=== PATIENT | male | born 1970 | race Caucasian/White ===

== ENCOUNTER 2018-09-11 07:30 | Outpatient (RCR) | payer MEDICAID, SELFPAY | END 2018-09-11 11:30 | disposition home or self-care (01) | LOC: PT 07:30 | PROVIDERS: Family Provider Internal Medicine Adolescent Medicine; PCP Internal Medicine Adolescent Medicine; Visit Provider Neurological Surgery | DX: M51.26 Other intervertebral disc displacement, lumbar region (principal); M54.5 Low back pain; G89.29 Other chronic pain; Z98.890 Other specified postprocedural states | CPT/HCPCS: 97010; 97014; 97110; 97163; G0283 ==

== ENCOUNTER → 2020-07-16 08:31 | Outpatient (CLI) | payer MEDICAID, SELFPAY ==
[2020-07-16 15:48] LABS: Coronavirus 19 IgG Antibody Positive (Negative); Coronavirus 19 IgM Antibody Positive (Negative)
== END ==
PROVIDERS: Visit Provider Internal Medicine Gastroenterology
DX: Z01.84 Encounter for antibody response examination (principal); U07.1 COVID-19; Z12.11 Encounter for screening for malignant neoplasm of colon
CPT/HCPCS: 36415; 86328

== ENCOUNTER → 2020-07-17 09:23 | Outpatient (CLI) | payer MEDICAID, SELFPAY | PROVIDERS: PCP Nurse Practitioner Family; Visit Provider Internal Medicine Gastroenterology | DX: Z01.89 Encounter for other specified special examinations (principal); Z12.11 Encounter for screening for malignant neoplasm of colon | CPT/HCPCS: U0003 ==

== ENCOUNTER 2020-07-18 08:46 | Day surgery (SDC) | payer MEDICAID, SELFPAY ==
[2020-07-13 09:44] VITALS: BMI 31.8
[2020-07-18] VITALS (7 sets, daily range): BP systolic 109–145; BP diastolic 68–99; PULSE 50–68; RESP 18; TEMP 36.2–36.7; O2SAT 97–100
--- NOTE | 2020-07-18 10:08 | P.PN_ITS ---
[facility] Anesthesia Checklist - Patient Identification Patient Identification: Arm Band - Structural Data Admitted From: Home Planned Operative Procedure/s: colonoscopy Consent for Planned Operative Procedure(s) Verified: Yes Verified Documents: Surgical Consent, History and Physical - NPO Status Verified Time NPO: 00:00 - Additional verifications Anesthesia Reactions: No - Airway Assessment C-Spine Mobility Assessed: Yes (mp2) TMJ Mobility Assessed: Yes Dentition: Good Dentition - Neurological Assessment Level of Consciousness: Awake, Alert - Anesthesia Plan Anesthesia Risk discussed: Yes Anesthesia Plan: Verified ASA Class: II Anesthesia Type: MAC [facility] History I have reviewed the patient's past medical history: Yes Medical History: Denies:: Cancer, Diabetes Mellitus Type 1, Diabetes Mellitus Type 2, Internal Pacemaker, MRSA, Seizures *Have you ever received a pneumonia vaccine?: No *Have you received a flu vaccine this season?: No Anesthesia experience/problems:: nac Other Surgeries: Yes: Other (back). No: Pacemaker Amputation: No Fractures: No - *Social History Alcohol Intake: never Substance Use Type: denies use *Occupational Status:: employed Housing: house Household Members: spouse *Travel in the last 8 weeks: None Family Hx:: No significant family history
--- NOTE | 2020-07-18 11:15 | P.PCN_ITS ---
[facility] Procedure Note Procedure Note:: Colonoscopy Procedure Report: Colonoscopy with cold snare polypectomy Endoscopist: Angel Cardona II, MD Referring physician: KIMMIE Francis Date of Procedure: July 18, 2020 Equipment: Olympus 180 variable stiffness pediatric colonoscope Sedation: MAC sedation Indication: Mr. Antonio is a 50-year-old gentleman who is here for initial screening colonoscopy. He reports no abdominal pain, weight loss, change in his bowel habits or rectal bleeding. He reports no family history of colon cancer. Procedure: Prior to the procedure, a history and physical exam was performed, and patient's medications and allergies were reviewed. The risks, benefits and alternatives of the sedation and procedure were discussed with the patient. All questions were answered and informed consent was obtained. The patient was brought to the procedure room. Patient identification and proposed procedure were verified by the physician and the nurse. The patient was placed in a left lateral decubitus position and the scope was passed under direct vision. Throughout the procedure, the patient's blood pressure, pulse, and oxygen saturations were monitored continuously. The colonoscopy was accomplished without difficulty. The patient tolerated the procedure well. Findings: On digital rectal examination there was normal rectal tone. There were no external hemorrhoids. The prostate was 2+, smooth, soft, symmetric without nodules. The colonoscope was introduced through the anal canal to the rectum an d advanced to the cecum. The ileocecal valve and appendiceal orifice were identified. The scope was advanced a short distance into the ileum which appeared grossly normal. The scope was then withdrawn into the colon. The cecum, ascending and transverse colon and mucosa were grossly normal. There was a 5 mm descending colon polyp that was removed via cold snare polypectomy. There were scattered diverticuli throughout the descending and sigmoid colon (LEFT colon). The rectum itself was normal. Upon retroflexion within the rectum there were grade 1 internal hemorrhoids. The preparation was excellent throughout with [place] Preparation Score of 9. The cecal time was 12 minutes. Impression: 1. Diminutive descending colon polyp 2. Left-sided diverticulosis 3. Grade 1 internal hemorrhoids Plan: I will follow up the polyp pathology and recommend repeat colonoscopy again in 7-10 years based upon the polyp histology. I would encourage bulk fiber supplementation on a long-term daily maintenance basis.
== END 2020-07-18 12:10 | disposition home or self-care (01) ==
LOC: OUTP 08:47
PROVIDERS: PCP Nurse Practitioner Family; Visit Provider Internal Medicine Gastroenterology
PROC: 0DJD8ZZ Inspection of Lower Intestinal Tract, Via Natural or Artificial Opening Endoscopic (ICD-10-PCS; CPT 45378; principal; 2020-07-18 10:30)
DX: Z12.11 Encounter for screening for malignant neoplasm of colon (principal); K63.5 Polyp of colon; K57.30 Diverticulosis of large intestine without perforation or abscess without bleeding; K64.0 First degree hemorrhoids; Z82.5 Family history of asthma and other chronic lower respiratory diseases
CPT/HCPCS: 45385